=== PATIENT | female | born 1970 | race Caucasian/White ===

== ENCOUNTER 2019-12-30 15:09 | Emergency (ER) | payer OTHER ==
[~2019-12-30] VITALS: Ht 170.2 cm; Wt 100.0 kg
[~2019-12-30 15:09] MED LIST: PERCOCET 325 MG1 TA2 PO
[2019-12-30 15:24] VITALS: BP 156/71; TEMP 97.7
[2019-12-30 16:24] LABS: BASO # 0.1 (0.0-0.2); BASO % 0.3 % (0.0-2.0); EOS % 0.2 % (0-4.0); GRAN # 14.9 (1.4-6.5); GRAN % 86.1 % (42.2-75.2); HEMATOCRIT 44.4 % (37.0-47.0); HEMOGLOBIN 15.6 g/dl (12.5-16.0); LYMPH % 5.9 % (20.0-51.0); MEAN CELL VOLUME 88 fl (80.0-100.0); MEAN CORPUSCULAR HEMOGLOBIN 31 pg (27.0-31.0); MEAN CORPUSCULAR HGB CONC 35 g/dl (33.0-37.0); MEAN PLATELET VOLUME 9.1 fl (7.4-10.4); MONO # 1.2 (0.1-0.6); MONO % 7.1 % (1.7-9.3); PLATELET COUNT 256 K/mm3 (130-400); RED BLOOD COUNT 5.04 M/mm3 (4.10-5.30); REDCELL DISTRIBUTION WIDTH-CV 12.5 % (11.5-14.5)
[2019-12-30 16:39] LABS: ALANINE AMINOTRANSFERASE 26 U/L (4-34); ALBUMIN 5.4 gm/dL (3.5-5.0); ALKALINE PHOSPHATASE 106 U/L (50-136); ANION GAP 15 mmol/L (7-16); AST,SGOT 39 U/L (15-37); BILIRUBIN,TOTAL 0.9 mg/dL (0.0-1.0); BLOOD UREA NITROGEN 19 mg/dL (7-17); CALCIUM 10.5 mg/dL (8.4-10.2); CARBON DIOXIDE 25 mmol/L (22-30); CHLORIDE 95 mmol/L (98-107); CREATININE, serum 0.68 (0.52-1.25); GLUCOSE 110 mg/dL (74-106); POTASSIUM 3.6 mmol/L (3.4-5.0); SODIUM 135 mmol/L (137-145); TOTAL PROTEIN 8.9 gm/dL (6.4-8.2)
[2019-12-30 16:43] LABS: C-REACTIVE PROTEIN < 0.5 mg/dL (0.0-0.9)
[2019-12-30] MEDS ORDERED: NORCO 325 MG-51 TAB PO (17:56)
[2019-12-30] MEDS ORDERED: PHENERGAN 25 TA25 MG PO (17:56)
[2019-12-30 18:11] VITALS: PULSE 94
== END 2019-12-30 18:08 | disposition home or self-care (01) ==
LOC: COL.ER 15:09
PROVIDERS: Emergency Medicine
DX: S16.1XXA Strain of muscle, fascia and tendon at neck level, initial encounter (principal); R19.7 Diarrhea, unspecified; R11.2 Nausea with vomiting, unspecified; X58.XXXA Exposure to other specified factors, initial encounter
CPT/HCPCS: J0780; J1170; J1200; J1885; J7030

== ENCOUNTER → 2020-02-15 | Outpatient (CLI) | payer OTHER ==
[~2020-02-15] MED LIST changes: +NORCO 325 MG-51 TAB PO; +PHENERGAN 25 TA25 MG PO
== END ==
LOC: COL.RAD 09:59
DX: M47.812 Spondylosis without myelopathy or radiculopathy, cervical region (principal); M48.02 Spinal stenosis, cervical region

== ENCOUNTER 2021-02-19 12:21 | Emergency (ER) | payer OTHER ==
[~2021-02-19] VITALS: Ht 170.2 cm; Wt 88.6 kg
[2021-02-19 12:42] VITALS: TEMP 100.1
[2021-02-19 15:13] LABS: MEAN CELL VOLUME 87 fl (80.0-100.0); MEAN CORPUSCULAR HGB CONC 35 g/dl (33.0-37.0); MEAN PLATELET VOLUME 9.2 fl (7.4-10.4); PLATELET COUNT 184 K/mm3 (130-400); RED BLOOD COUNT 3.27 M/mm3 (4.10-5.30); REDCELL DISTRIBUTION WIDTH-CV 12.8 % (11.5-14.5)
[2021-02-19 15:23] LABS: HEMATOCRIT 28.5 % (37.0-47.0); HEMOGLOBIN 9.9 g/dl (12.5-16.0); MEAN CORPUSCULAR HEMOGLOBIN 30 pg (27.0-31.0)
[2021-02-19 15:29] LABS: ALBUMIN 3.7 gm/dL (3.5-5.0); BILIRUBIN,TOTAL 0.7 mg/dL (0.0-1.0); CALCIUM 8.4 mg/dL (8.4-10.2); CREATININE, serum 1.78 (0.52-1.25); TOTAL PROTEIN 6.8 gm/dL (6.4-8.2)
[2021-02-19 15:56] LABS: BAND 12 % (0-10); LYMPHOCYTE 3 % (20.0-51.0); NEUTROPHILS 80 % (42.0-75.2); PLATELET ESTIMATE NORMAL (NORMAL)
[2021-02-19 16:50] LABS: C-REACTIVE PROTEIN 55.8 mg/dL (0.0-0.9)
[2021-02-19 17:20] LABS: COLLECTION METHOD CLEAN CATCH
[2021-02-19 17:49] LABS: PH 5 (5-8); SQUAMOUS EPITHELIAL None Seen /hpf; URINE APPEARANCE Cloudy; URINE BACTERIA Many /hpf; URINE BILIRUBIN Negative (NEGATIVE); URINE BLOOD 2+ (NEGATIVE); URINE COLOR Yellow; URINE GLUCOSE Negative (NEGATIVE); URINE KETONE Negative (NEGATIVE); URINE LEUKOCYTE ESTERASE 3+ (NEGATIVE); URINE NITRATE Negative (NEGATIVE); URINE PROTEIN(semi-quant) 2+ (NEGATIVE); URINE UROBILINOGEN Negative (NEGATIVE)
[2021-02-19] MEDS ORDERED: ZOFRAN ODT4 MG PO (18:16)
[2021-02-19] MEDS ORDERED: OMNICEF 300MG300 MG PO (18:16)
[2021-02-19 19:50] VITALS: BP 122/80; PULSE 76
== END 2021-02-19 19:52 | disposition home or self-care (01) ==
LOC: COL.ER 12:21
PROVIDERS: Family Medicine
DX: N12 Tubulo-interstitial nephritis, not specified as acute or chronic (principal); E87.1 Hypo-osmolality and hyponatremia; E86.0 Dehydration; M54.2 Cervicalgia; G89.29 Other chronic pain; Z20.822 Contact with and (suspected) exposure to COVID-19; Z79.891 Long term (current) use of opiate analgesic
CPT/HCPCS: J0696; J1885; J7030; J7120; Q9967